=== PATIENT | female | born 1940 | race Caucasian/White ===

== ENCOUNTER 2018-06-23 13:07 | Inpatient (IN) | payer OTHER ==
[~2018-06-23] VITALS: Ht 162.6 cm; Wt 71.7 kg
[2018-06-23 14:15] VITALS: BP 135/70
[2018-06-23] MEDS ORDERED: SIMVASTATIN40 MG PO (14:59)
[2018-06-23] MEDS ORDERED: WELLBUTRIN SR100 MG PO (14:59)
[2018-06-23] MEDS ORDERED: FENOFIBRATE160 MG PO (15:00)
[2018-06-23] MEDS ORDERED: ALENDRONATE SOD70 MG PO (15:00)
[2018-06-23] MEDS ORDERED: LISINOPRIL20 MG PO (15:02)
[2018-06-23] MEDS ORDERED: PROTONIX40 M1 PO (15:02)
[2018-06-23] MEDS ORDERED: SYNTHROID75 MCG PO (15:04)
[2018-06-23] MEDS ORDERED: ASPIR 8181 M1 (15:07)
[2018-06-23] MEDS ORDERED: OSTERA TABLET1 EAC1 (15:09)
[2018-06-23] MEDS ORDERED: LANTUS (15:10)
--- NOTE | 2018-06-23 16:19 | NUR ---
PT ADMITTED TO 213 - TELEMONITOR APPLIED - VSS - DENIES CP - ASSESSMENT COMPLETED CHARTED - PT A/O X 4 - PT GOOD HISTORIAN /C HEALTH INFORMATION - DR. PRECIADO AND KAMRYN AT BEDSIDE
--- NOTE | 2018-06-23 17:12 | 2DMMODE ---
[facility] [address] [place] [address] 2 D/M-MODE ECHOCARDIOGRAM Name: MIKHAIL EDGE Room #: 213-P [facility] IN [facility]#: [id number] Admission: 06/23/18 Attend Phys: Sky Duke MD Discharge: Date of : 44 Date of Service: 06/23/18 1711 Report #: [id number] THIS REPORT FOR: //name// APPROVED REPORT Study performed: 06/23/2018 16:13:56 EXAM: Comprehensive 2D, Doppler, and color-flow Echocardiogram Patient Location: In-Patient Room #: 213 Status: routine BSA: 1.77 HR: 80 bpm BP: 135/70 mmHg Other Information Study Quality: Adequate Indications Diabetes CAD Chest Pain Hypertension/HDD 2D Dimensions RVDd: 25.94 mm IVSd: 9.39 (7-11mm) LVOT Diam: 19.94 (18-24mm) LVDd: 40.36 mm PWd: 8.90 (7-11mm) LVDs: 27.23 (25-40mm) Aortic Root: 35.13 mm IVC: 9.00 mm Volumes Left Atrial Volume (Systole) Single Plane 4CH: 28.87 mL Single Plane 2CH: 24.54 mL LA ESV Index: 17.00 mL/m2 Aortic Valve AoV Peak Navi.: 1.00 m/s AO Peak Gr.: 3.98 mmHg LVOT Max P.86 mmHg LVOT Max V: 0.85 m/s JL Vmax: 2.65 cm2 Mitral Valve E/A Ratio: 0.5 [facility] [place] [address] 2 D/M-MODE ECHOCARDIOGRAM Name: MIKHAIL EDGE Room #: 213-P [facility] IN [facility].#: [id number] Admission: 06/23/18 Attend Phys: Sky Duke MD Discharge: Date of : 44 Date of Service: 06/23/18 1711 Report #: [id number] MV Decel. Time: 295.81 ms MV E Max Navi.: 0.59 m/s MV A Navi.: 1.22 m/s MV PHT: 85.78 ms IVRT: 128.03 ms Pulmonary Valve PV Peak Navi.: 0.73 m/s PV Peak Gr.: 2.15 mmHg Pulmonary Vein P Vein S: 0.71 m/s P Vein A: 0.28 m/s P Vein D: 0.35 m/s P Vein A Dur.: 103.8 msec P Vein S/D Ratio: 2.03 Tricuspid Valve TR Peak Navi.: 2.38 m/s RAP Estimate: 5.00 mmHg TR Peak Gr.: 22.75 mmHg PA Pressure: 28.00 mmHg Left Ventricle The left ventricle is normal size. There is normal left ventricular wall thickness. The left ventricular systolic function is normal. The left ventricular ejection fraction is within the normal range. LVEF is 55%. Mild diastolic dysfunction is present (impaired relaxation pattern). Right Ventricle The right ventricle is normal size. The right ventricular systolic function is normal. Atria The left atrium size is normal. The right atrium size is normal. Aortic Valve The aortic valve is normal in structure. No aortic regurgitation is present. There is no aortic valvular stenosis. Mitral Valve The mitral valve is normal in structure. Mild mitral regurgitation. No evidence of mitral valve stenosis. Tricuspid Valve The tricuspid valve is normal in structure. Trace tricuspid regurgitation. PAP is estimated at 28 mmHg. [facility] [email or web address] [place] [address] 2 D/M-MODE ECHOCARDIOGRAM Name: MIKHAIL EDGE Estefania Room #: 213-P [facility] IN [facility]#: [id number] Admission: 06/23/18 Attend Phys: Sky Duke MD Discharge: Date of : 44 Date of Service: 06/23/18 1711 Report #: [id number] Pulmonic Valve The pulmonary valve is normal in structure. There is no pulmonic valvular regurgitation. Great Vessels The aortic root is normal in size. Ascending aorta is not well visualized. IVC is normal in size and collapses >50% with inspiration. Pericardium There is no pericardial effusion. <Conclusion> The left ventricle is normal size. There is normal left ventricular wall thickness. The left ventricular systolic function is normal. Mild diastolic dysfunction is present (impaired relaxation pattern). The right ventricle is normal size. The left atrium size is normal. The aortic valve is normal in structure. Mild mitral regurgitation. Trace tricuspid regurgitation. PAP is estimated at 28 mmHg. <ELECTRONICALLY SIGNED> By: Jac Dial MD 06/23/181710 10 10 Jac Dial MD /INF
[2018-06-23 20:19] VITALS: BP 108/45
[2018-06-24 00:32] VITALS: BP 142/78
[2018-06-24 03:39] LABS: BASOPHILS 0.3 % (0.0-2.0); EOSINOPHILS 1.3 % (0.0-3.0); HEMATOCRIT 38.7 % (37.0-47.0); HEMOGLOBIN 13.4 gm/dL (12.0-15.0); LYMPHOCYTES 31.2 % (24.0-44.0); MCH 30.9 pg (26.0-34.0); MCHC 34.5 g/dL (28.0-37.0); MCV 89.5 fL (80.0-100.0); MONOCYTES 8.9 % (1.0-8.0); PLATELET COUNT 244 thou/uL (150-400); POLYS 58.3 % (36.0-66.0); RBC 4.33 mil/uL (4.20-5.00); RDW 12.5 % (10.5-14.5); WBC 6.8 thou/uL (4.0-11.0)
[2018-06-24 04:00] LABS: ALBUMIN 3.5 g/dL (3.4-5.0); ANION GAP 9 mmol/L (7-16); BUN 21 mg/dL (7-18); CALCIUM 9.3 mg/dL (8.5-10.1); CHLORIDE 106 mmol/L (98-107); CO2 26 mmol/L (21-32); CREATININE 1.2 mg/dL (0.6-1.0); GLUCOSE 116 mg/dL (74-106); POTASSIUM 3.9 mmol/L (3.5-5.1); SGOT 17 U/L (15-37); SGPT 18 U/L (30-65); SODIUM 141 mmol/L (136-145); TOTAL BILIRUBIN 0.4 mg/dL (<0.1-1.0); TOTAL PROTEIN 6.8 g/dL (6.4-8.2); TROPONIN-I <0.06 ng/mL (<0.06)
[2018-06-24 04:02] LABS: CHOLESTEROL 189 mg/dL (<200); HDL CHOLESTEROL 53 mg/dL (>40); LDL CHOLESTEROL 103 mg/dL (<100); MAGNESIUM 1.9 mg/dL (1.8-2.4); TC:HDL 3.6 Ratio (Not establshd); TRIGLYCERIDE 165 mg/dL (<150); VLDL 33 mg/dL (<40)
[2018-06-24 04:07] LABS: SERUM ASSESSMENT Clear
[2018-06-24 04:45] VITALS: BP 147/87
--- NOTE | 2018-06-24 07:29 | NUR ---
ASSUMED PT CARE AT 1900 WITH NO SIGN OF DISTRESS NOTED IN PT. PT IS ALERT AND ORIENTED. SCHEDULED MED ADMINISTERED. PT IS NPO FOR A CARDIAC CATH. PT VERBALIZES UNDERSTANDING. HEART RHYTHM IS NORMAL, VITAL SIGN NORMAL, DENIES ANY FURTHER NEEDS AT THIS TIME.
--- NOTE | 2018-06-24 07:47 | NUR ---
ASSUMED CARE - PT A/O X 4 - LEAVING FLOOR FOR BOARD SAW RUNNER
--- NOTE | 2018-06-24 07:55 | EKG ---
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
--- NOTE | 2018-06-24 08:02 | EKG ---
[place] [address] 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: JACIEL : 1940 Requested By: Angella Marcos Order Number: [id number] MD: Bharath Conway Measurements Intervals [place] Rate: 74 P: -17 NE: 133 QRS: -33 QRSD: 91 T: 33 QT: 416 QTc: 462 Interpretive Statements Sinus rhythm Abnormal R-wave progression, late transition Left anterior hemiblock No previous ECG available for comparison Electronically Signed On 06-24-2018 8:02:08 MONITOR WORKER by Bharath Conway [email or web address] <ELECTRONICALLY SIGNED> By: Bharath Conway MD, [facility] 06/24/18801 5 5 Bharath Conway MD, FACC /EPI
[2018-06-24 08:24] VITALS: BP 130/82
[2018-06-24 11:30] VITALS: BP 98/66
[2018-06-24] MEDS ORDERED: IMDUR 30 MG TAB30 M1 PO (13:17)
[2018-06-24] MEDS ORDERED: METOPROLOL SUCC25 M1 PO (13:18)
[2018-06-24 13:50] VITALS: BP 98/66
--- NOTE | 2018-06-24 17:51 | CATHLAB ---
[facility] [address] [place] [address] INVASIVE PROCEDURE REPORT Name: EDGERENEEABI Mac Room #: 213-P [facility] IN [facility]#: [id number] Admission: 06/23/18 Attend Phys: Sky Duke MD Discharge: 06/24/18 Date of : 44 Date of Service: 06/24/18 1751 Report #: [id number] THIS REPORT FOR: //name// APPROVED REPORT Study performed: 06/24/2018 07:44:09 Patient Details Patient Status: In-Patient Room #: The patient is a 78 year-old female Event Personnel Jac Dial Band Salvager, Conrad Feliciano RN, Danna Wong CVT Monitor, Mari Moon Scrub Procedures Performed Left Heart Cath w/or w/o Coronaries [id number] [facility] Indication Unstable angina , Chest pain Risk Factors Hypercholesterolemia, Coronary Artery DiseaseHypertension Procedure Narrative The Right Groin^ was infiltrated with subcutaneous anesthesia. A PINNACLE 4FR Sheath #[id number] sheath was inserted into the RFA 4 fr^. Coronary angiography was performed using coronary diagnostic catheters. The right coronary system was accessed and visualized with a JR4 catheter. The left coronary system was accessed and visualized with a JL4 catheter. The left ventricle was accessed and visualized with a PIGTAIL catheter. Left ventricular/Aortic Valve gradient assessed via catheter pullback. Left ventriculogram was performed in 30 degree projection. Hemostasis was obtained with manual pressure following sheath removal without any complications. There was no hematoma. Intraoperative Conscious Sedation Sedation start time: 8.30 Case end Time: 9.06 Fentanyl 50 mcg Versed 1.5 mg Fluoro Time: 3.40 minutes Dose: DAP 4236.00 cGycm2 637 mGy Contrast Type and Amount: Visipaque 47 ml [facility] [address] [place] [address] INVASIVE PROCEDURE REPORT Name: MIKHAIL EDGE Room #: 213-P [facility]#: [id number] Admission: 06/23/18 Attend Phys: Sky Duke MD Discharge: 06/24/18 Date of : 44 Date of Service: 06/24/18 1751 Report #: [id number] Coronary Angiography The patient's coronary anatomy is right dominant. Diagnostic Cath Left Main This is a patent vessel, with no flow-limiting lesions. LAD This is a moderate size caliber vessel, traversing the anterior wall and wrapping around the apex. There is mild disease in the proximal mid segments, 20%. Diagonal 1 This is a patent vessel, with mild disease in the proximal segment. Supplies several branches as it traverses the anterolateral wall. Circumflex Supplies one moderate size OM vessel. OM1 There is a borderline stenosis in the proximal segment, 60%. Supplies several small branches as it travels the lateral wall. Right Coronary This is a dominant vessel, with mild plaquing in the mid segment, 20%. R PDA This is a patent vessel, with no flow-limiting lesions. RPLV This is a patent vessel, with no flow-limiting lesions. Left Ventriculography The left ventricle is normal in size with normal contractility. The left ventricular ejection fraction is estimated to be 55-60%. Hemodynamics The aortic pressure is 130/64 mmHg with a mean of 75 mmHg. The left ventricular pressure is 129/4 mmHg with a mean of mmHg. The left ventricular end diastolic pressure is 10 mmHg. There was no gradient across the aortic valve upon pullback. Pullback from the left ventricle to the aorta revealed no gradient across the aortic valve. Conclusion 1. There is a borderline stenosis in OM1, recommend medical therapy. 2. Mild disease in the LAD and RCA. 3. Normal LV systolic function. 4. Aggressive risk factor management. <ELECTRONICALLY SIGNED> By: Jac Dial MD 06/24/181750 50 50 Jac Dial MD /INF
== END 2018-06-24 14:39 | disposition home or self-care (01) | DRG 287 ==
LOC: 2N 13:07 → ENTRNSPT 06-24 14:29 → EDTRNSPTSTS 06-24 14:35 → 2N 06-24 14:39
PROVIDERS: Nurse Practitioner; ADMIT Hospitalist
PROC: B2111ZZ Fluoroscopy of Multiple Coronary Arteries using Low Osmolar Contrast (ICD-10-PCS; principal; 2018-06-24)
PROC: B2151ZZ Fluoroscopy of Left Heart using Low Osmolar Contrast (ICD-10-PCS; principal; 2018-06-24)
PROC: 4A023N7 Measurement of Cardiac Sampling and Pressure, Left Heart, Percutaneous Approach (ICD-10-PCS; principal; 2018-06-24)
DX: I25.110 Atherosclerotic heart disease of native coronary artery with unstable angina pectoris (principal); E78.5 Hyperlipidemia, unspecified; K21.9 Gastro-esophageal reflux disease without esophagitis; E03.9 Hypothyroidism, unspecified; N18.1 Chronic kidney disease, stage 1; F41.9 Anxiety disorder, unspecified; F32.9 Major depressive disorder, single episode, unspecified; E78.00 Pure hypercholesterolemia, unspecified; I12.9 Hypertensive chronic kidney disease with stage 1 through stage 4 chronic kidney disease, or unspecified chronic kidney disease; E11.22 Type 2 diabetes mellitus with diabetic chronic kidney disease; Z87.891 Personal history of nicotine dependence; Z79.82 Long term (current) use of aspirin; Z79.899 Other long term (current) drug therapy; Z82.49 Family history of ischemic heart disease and other diseases of the circulatory system; Z80.8 Family history of malignant neoplasm of other organs or systems
CPT/HCPCS: 10081

== ENCOUNTER → 2018-08-25 | Outpatient (CLI) | payer OTHER ==
[~2018-08-25] MED LIST: ALENDRONATE SOD70 MG PO; ASPIR 8181 M1; FENOFIBRATE160 MG PO; IMDUR 30 MG TAB30 M1 PO; LANTUS; LISINOPRIL20 MG PO; METOPROLOL SUCC25 M1 PO; OSTERA TABLET1 EAC1; PROTONIX40 M1 PO; SIMVASTATIN40 MG PO; SYNTHROID75 MCG PO; WELLBUTRIN SR100 MG PO
== END ==
LOC: NUC 07:34
DX: R07.89 Other chest pain (principal); R06.00 Dyspnea, unspecified; I10 Essential (primary) hypertension; E78.5 Hyperlipidemia, unspecified; E11.9 Type 2 diabetes mellitus without complications

== ENCOUNTER → 2019-08-19 | Outpatient (CLI) | payer OTHER | LOC: SJCVC 14:10 | DX: I44.4 Left anterior fascicular block (principal); R94.31 Abnormal electrocardiogram [ECG] [EKG]; I25.10 Atherosclerotic heart disease of native coronary artery without angina pectoris; I12.9 Hypertensive chronic kidney disease with stage 1 through stage 4 chronic kidney disease, or unspecified chronic kidney disease; E11.22 Type 2 diabetes mellitus with diabetic chronic kidney disease; N18.9 Chronic kidney disease, unspecified; E78.00 Pure hypercholesterolemia, unspecified; K21.9 Gastro-esophageal reflux disease without esophagitis; M19.90 Unspecified osteoarthritis, unspecified site; Z87.891 Personal history of nicotine dependence; Z79.82 Long term (current) use of aspirin; Z79.899 Other long term (current) drug therapy ==

== ENCOUNTER → 2019-09-09 | Outpatient (CLI) | payer OTHER | LOC: SJCVCIMAG 10:20 | DX: I25.10 Atherosclerotic heart disease of native coronary artery without angina pectoris (principal); I10 Essential (primary) hypertension; E78.00 Pure hypercholesterolemia, unspecified; K21.9 Gastro-esophageal reflux disease without esophagitis ==